=== PATIENT | male | born 1980 | race Caucasian/White ===

== ENCOUNTER 2016-09-07 10:18 | Emergency (ER) | payer BC ==
[2016-09-07 11:16] VITALS: BP 132/83
--- NOTE | 2016-09-07 11:45 | UC ---
Respiratory Complaint HPI - HPI Summary HPI Summary: here for medicine refill of symbicort and Advair. he is not ill, no fevers. no increased cough. used inhalers yesterday and doesnt have any left for today. just moved here from [place] and doesnt have a pcp here yet. he smokes. he had quit for 2 yrs usuing chyantix and would like to quit again. he doesnt know if it is DOT approved or not. - History of Current Complaint Chief Complaint: UCMedRefill Stated Complaint: MED RE-FILL/ASTHMA Time Seen by Provider: 09/07/16 11:34 - Allergies/Home Medications Allergies/Adverse Reactions: Allergies Allergy/AdvReac Type Severity Reaction Status Date / Time No Known Allergies Allergy Verified 09/07/16 11:15 PMH/Surg Hx/FS Hx/Imm Hx Previously Healthy: Yes Respiratory History Of: Reports: Asthma - Surgical History Surgical History: None - Family History Known Family History: Positive: Respiratory Disease - Social History Alcohol Use: Rare Substance Use Type: None Smoking Status (MU): Heavy Every Day Tobacco Smoker Review of Systems Constitutional: Negative Skin: Negative Eyes: Negative ENT: Negative Respiratory: Cough Cardiovascular: Negative Gastrointestinal: Negative Genitourinary: Negative Motor: Negative Neurovascular: Negative Musculoskeletal: Negative Neurological: Negative Psychological: Negative All Other Systems Reviewed And Are Negative: Yes Physical Exam Triage Information Reviewed: Yes Appearance: Well-Appearing, No Pain Distress, Well-Nourished Vital Signs: Initial Vital Signs Temp 97.1 F 09/07/16 11:12 Pulse 72 09/07/16 11:12 Resp 16 09/07/16 11:12 BP 132/83 09/07/16 11:12 Pulse Ox 100 09/07/16 11:12 Vital Signs Reviewed: Yes Eye Exam: Normal ENT Exam: Normal Neck exam: Normal Neck: Positive: Supple, Nontender, No Lymphadenopathy Respiratory Exam: Normal Respiratory: Positive: Lungs clear, Normal breath sounds, No respiratory distress, No accessory muscle use Cardiovascular Exam: Normal Cardiovascular: Positive: RRR, No Murmur, Pulses Normal, Brisk Capillary Refill Abdominal Exam: Normal Musculoskeletal Exam: Normal Neurological Exam: Normal Psychological Exam: Normal Skin Exam: Normal UC Diagnostic Evaluation - Laboratory O2 Sat by Pulse Oximetry: 100 Respiratory Course/Dx - Course Course Of Treatment: discussed that advair and symbicort are the same class of medications and should not be prescribed/used together. He prefers to use the purple discus/advair. Also could use albuterol rescue inhaler. - Differential Dx/Diagnosis Differential Diagnosis/HQI/PQRI: Asthma, Bronchitis, Lower Resp Infection Provider Diagnoses: asthma Discharge - Discharge Plan Condition: Stable Disposition: HOME Prescriptions: Albuterol HFA INHALER* [Ventolin HFA Inhaler*] 2 puff INH Q4H PRN #1 mdi PRN Reason: Cough Fluticasone-Salmeterol 250-50* [Advair Diskus 250-50*] 1 puff INH BID #1 diskus Patient Education Materials: Asthma (ED) Additional Instructions: We have given you a list of PCPs for you to establish with in the area. I encourage you to quit smoking as we discussed. Also, as we discussed, advair and symbicort are in the same class of medicine and should not be used together.
== END 2016-09-07 11:58 | disposition home or self-care (01) ==
LOC: UCCORT 10:18
DX: J45.909 Unspecified asthma, uncomplicated (principal); Z76.0 Encounter for issue of repeat prescription; F17.210 Nicotine dependence, cigarettes, uncomplicated
CPT/HCPCS: 99202; G0463

== ENCOUNTER 2017-06-14 10:05 | Emergency (ER) | payer BC ==
[2017-06-14 10:53] VITALS: BP 115/78
--- NOTE | 2017-06-14 10:59 | UC ---
Asthma HPI - HPI Summary HPI Summary: 36 year old male with complaints of mild wheezing. Hx of Asthma and is out of his ventolin x 5 - 6 days. He scheduled an appointment to see his primary but can not get in until Friday. He is wheezing and increased cough is worsening. Denies fever, chest pain, or shortness of breath 1 ppd smoker - History of Current Complaint Chief Complaint: UCGeneralIllness Stated Complaint: CONGESTION, COUGH, HX ASTHMA Time Seen by Provider: 06/14/17 10:49 Hx Obtained From: Patient Onset/Duration: Gradual Onset, Lasting Days - 5, Worse Since - this morning Timing: Constant Initial Severity: Moderate Current Severity: Moderate Pain Scale Used: 0-10 Numeric - 0 Location/Character: Wheezing - and increased tight cough Aggravating Factor(s): Exertion, Smoke Alleviating Factor(s): Nothing - he is out of ventolin Associated Signs and Symptoms: Positive: Negative - Risk Factors Status Asthmaticus Risk Factors: Smoking - Allergy/Home Medications Allergies/Adverse Reactions: Allergies Allergy/AdvReac Type Severity Reaction Status Date / Time No Known Allergies Allergy Verified 06/14/17 10:53 PMH/Surg Hx/FS Hx/Imm Hx Previously Healthy: Yes - Surgical History Surgical History: None - Family History Known Family History: Positive: Respiratory Disease Negative: Cardiac Disease - Social History Occupation: Employed Full-time Lives: With Family Alcohol Use: Rare Substance Use Type: None Smoking Status (MU): Heavy Every Day Tobacco Smoker Type: Cigarettes Amount Used/How Often: 1 ppd Cessation Counseling: Patient Advised to Stop - he is planning on speaking with his primary on Friday. He has used Chantix with success in the past - Immunization History Most Recent Influenza Vaccination: [id number] Review of Systems Constitutional: Negative Skin: Negative Eyes: Negative ENT: Negative Respiratory: Cough - tight with wheezing Cardiovascular: Negative Gastrointestinal: Negative Genitourinary: Negative Motor: Negative Neurovascular: Negative Musculoskeletal: Negative Neurological: Negative Psychological: Negative Is Patient Immunocompromised?: No All Other Systems Reviewed And Are Negative: Yes Physical Exam Triage Information Reviewed: Yes Appearance: Well-Nourished, Ill-Appearing - mild Vital Signs: Initial Vital Signs Temp 98 F 06/14/17 10:49 Pulse 70 06/14/17 10:49 Resp 17 06/14/17 10:49 BP 115/78 06/14/17 10:49 Pulse Ox 99 06/14/17 10:49 Vital Signs Reviewed: Yes Eyes: Positive: Conjunctiva Clear. Negative: Discharge ENT: Positive: Pharynx normal, Uvula midline. Negative: Nasal congestion, Nasal drainage, Hoarse voice Neck: Positive: Supple, Nontender, No Lymphadenopathy Respiratory: Positive: Decreased breath sounds - tight cough noted, Wheezing, Other: - does not appear to be in any acute distress Cardiovascular: Positive: RRR, No Murmur Abdomen Description: Positive: Nontender, Soft Musculoskeletal: Positive: Strength Intact, ROM Intact, No Edema Neurological: Positive: Alert, Muscle Tone Normal Psychological: Positive: Age Appropriate Behavior - pleasant and cooperative Skin: Negative: rashes, breakdown Asthma Course/Dx - Course Course Of Treatment: Duo nebulizer treatment. Reassess respiratory = Increased air movement, decreased wheezing. Encouraged follow up as scheduled with his primary care - Differential Dx/Diagnosis Differential Diagnosis/HQI/PQRI: Bronchitis Provider Diagnoses: Asthma Discharge - Discharge Plan Condition: Stable Disposition: HOME Prescriptions: Albuterol HFA INHALER* [Ventolin HFA Inhaler*] 2 puff INH Q4H PRN #1 mdi PRN Reason: wheezing or cough Patient Education Materials: Asthma (ED), How to Stop Smoking (ED) Referrals: No Primary Care Phys,NOPCP [Primary Care Provider] - Additional Instructions: Physician Referral Center - for assistance getting a primary care provider [phone]
[2017-06-14] MEDS ORDERED: Albuterol/Ipratropium NEB.SOL* Albuterol 2.5 MG/Ipratropium 0.5 MG 3 ML INH ONE (11:03)
== END 2017-06-14 11:35 | disposition home or self-care (01) ==
LOC: UCCORT 10:05
DX: J45.909 Unspecified asthma, uncomplicated (principal); F17.210 Nicotine dependence, cigarettes, uncomplicated
CPT/HCPCS: 99212; A9270-GY; G0463